=== PATIENT | male | born 1980 | race Caucasian/White ===

== ENCOUNTER 2017-12-02 12:27 | Emergency (ER) | payer BC ==
[~2017-12-02] VITALS: Ht 180.3 cm; Wt 70.3 kg
[~2017-12-02 12:27] MED LIST: AMOXICILLIN500 MG PO; CLEOCIN150 MG PO; CORTISPORIN 1%-10 M1 OT; DARVOCET N 1001 TAB PO; DIAZEPAM2 MG PO; DOXYCYCLINE MO100 MG PO; HYDROCODONE BIT1 T11 PO; MOTRIN800 MG PO; ROBAXIN750 MG PO; SEPTRA DS 800 M1 TAB PO; TORADOL10 MG PO; TRAMADOL HCL50 MG PO; TRIMOX500 MG PO; VICODIN 5/500 505 MG PO; VICODIN 500 MG-1 TAB PO; VOLTAREN50 M1 PO
[2017-12-02] MEDS ORDERED: Motrin,Rufen800 MG PO (15:21)
[2017-12-02] MEDS ORDERED: PREDNISONE10 MG PO (15:21)
[2017-12-02] MEDS ORDERED: CYCLOBENZAPRINE5 M3 PO (15:21)
== END 2017-12-02 15:33 | disposition home or self-care (01) ==
LOC: ED 12:27
DX: M54.41 Lumbago with sciatica, right side (principal); F17.200 Nicotine dependence, unspecified, uncomplicated; Z79.899 Other long term (current) drug therapy

== ENCOUNTER 2019-09-20 21:46 | Emergency (ER) | payer SELFPAY ==
[~2019-09-20] VITALS: Ht 167.6 cm; Wt 81.6 kg
[~2019-09-20 21:46] MED LIST changes: +CYCLOBENZAPRINE5 M3 PO; +Motrin,Rufen800 MG PO; +PREDNISONE10 MG PO
== END 2019-09-20 23:25 | disposition home or self-care (01) ==
LOC: ED 21:46
DX: T40.601A Poisoning by unspecified narcotics, accidental (unintentional), initial encounter (principal); R40.20 Unspecified coma; R07.9 Chest pain, unspecified; Z79.899 Other long term (current) drug therapy; Y92.89 Other specified places as the place of occurrence of the external cause